=== PATIENT | female | born 1955 | race Caucasian/White ===

== ENCOUNTER 2021-01-30 10:26 | Emergency (ER) | payer OTHER, MEDICARE, MEDICAID ==
[~2021-01-30] VITALS: Ht 167.6 cm; Wt 74.3 kg
--- NOTE | 2021-01-30 12:28 | REP ---
INDICATION: cough. COMPARISON: Comparison chest x-ray February 09, 2015. TECHNIQUE: Portable upright AP chest radiograph. FINDINGS: The lungs are well inflated and clear. Pleural angles are sharp. Heart is not felt to be enlarged. There are clips in right upper quadrant of the abdomen. Pulmonary vasculature is slightly cephalized. The aorta is calcific and tortuous.. IMPRESSION: Mild cephalization of the pulmonary vasculature. Otherwise no acute disease.. <Electronically signed by Angel Moura > 01/30/21 0830
[2021-01-30 13:15] LABS: BASO % 0.8 % (0.0-1.0); EOS # 0.1 10^3/uL (0.0-0.5); EOS % 2.3 % (0.0-3.0); HEMATOCRIT 40.5 % (36.0-47.0); HEMOGLOBIN 13.1 g/dl (12.0-15.5); LYMPH # 1.1 10^3/uL (1.5-5.0); LYMPH % 20.9 % (24.0-44.0); MEAN CORPUSCULAR HGB CONC 32.3 g/dl (32.0-36.5); MEAN CORPUSCULAR VOLUME 92.9 fl (80.0-96.0); MONO # 0.3 10^3/uL (0.0-0.8); MONO % 6.5 % (2.0-8.0); NEUTROPHILS # 3.6 10^3/uL (1.5-8.5); NEUTROPHILS % 69.3 % (36.0-66.0); PLATELET COUNT, AUTOMATED 225 10^3/uL (150-450); RED BLOOD COUNT 4.36 10^6/uL (4.00-5.40); WHITE BLOOD COUNT 5.2 10^3/uL (4.0-10.0)
[2021-01-30 13:51] LABS: BLOOD UREA NITROGEN 13 MG/DL (7-18); CALCIUM LEVEL 9.7 MG/DL (8.8-10.2); CARBON DIOXIDE LEVEL 31 MEQ/L (21-32); CHLORIDE LEVEL 106 MEQ/L (98-107); CK-MB VALUE MASS 2.7 NG/ML (<3.6); CPK CREATINE PHOSPHOKINASE 152 U/L (26-192); CREATININE FOR GFR 0.69 MG/DL (0.55-1.30); GLOMERULAR FILTRATION RATE > 60.0 (>45); GLUCOSE, FASTING 87 MG/DL (70-100); MB/CK RELATIVE INDEX 1.78 (< OR =4); NT-PRO BNP 125 PG/ML (<125); POTASSIUM SERUM 4.2 MEQ/L (3.5-5.1); SODIUM LEVEL 141 MEQ/L (136-145); TROPONIN I < 0.02 NG/ML (< 0.10)
[2021-01-30] MEDS ORDERED: TESS100C PO (14:28)
[2021-01-30 14:37] VITALS: BP 170/76
--- NOTE | 2021-01-30 19:47 | ECGEPIP ---
[facility] - ED Test Date: 2021-01-30 Pat Name: AYESHA ABRAHAM Department: Room: - Gender: Female Magnetic Locater: : 1955 Requested By: JAYLA Santa PA-C Order Number: [id number] Reading MD: Bacilio Preston Measurements Intervals Protem Rate: 75 P: 32 LA: 192 QRS: 19 QRSD: 92 T: 40 QT: 374 QTc: 417 Interpretive Statements Normal sinus rhythm Nonspecific ST T wave changes cw 02/09/[address] T wave changes Electronically Signed on 01-30-2021 19:47:02 EDT by Bacilio Preston
== END 2021-01-30 14:42 | disposition home or self-care (01) ==
LOC: M ED 10:26
DX: J00 Acute nasopharyngitis [common cold] (principal); J06.9 Acute upper respiratory infection, unspecified; B34.8 Other viral infections of unspecified site; B34.1 Enterovirus infection, unspecified; H61.21 Impacted cerumen, right ear; R91.8 Other nonspecific abnormal finding of lung field; Z20.9 Contact with and (suspected) exposure to unspecified communicable disease; I10 Essential (primary) hypertension; E78.5 Hyperlipidemia, unspecified; Z88.0 Allergy status to penicillin

== ENCOUNTER 2021-07-12 22:27 | Emergency (ER) | payer OTHER, MEDICAID ==
[~2021-07-12] VITALS: Ht 167.6 cm; Wt 63.6 kg
[2021-07-12 22:27] VITALS: BP 165/73
[~2021-07-12 22:27] MED LIST: TESS100C PO
== END 2021-07-12 23:38 | disposition left against medical advice (07) ==
LOC: M ED 22:27
DX: Z53.21 Procedure and treatment not carried out due to patient leaving prior to being seen by health care provider (principal)

== ENCOUNTER 2024-09-20 11:33 | Emergency (ER) | payer OTHER, MEDICAID ==
[~2024-09-20] VITALS: Ht 167.6 cm; Wt 72.3 kg
[2024-09-20] MEDS ORDERED: AZIT-12 PO (14:39)
[2024-09-20] MEDS ORDERED: LEVO1TAB40 PO (14:43)
[2024-09-20 14:57] VITALS: BP 130/67; TEMP 97.9; O2SAT 95
[2024-09-20] MEDS ORDERED: PROA1AER2 INH (18:03)
== END 2024-09-20 14:59 | disposition home or self-care (01) ==
LOC: M ED 11:33
DX: J18.9 Pneumonia, unspecified organism (principal); Z88.0 Allergy status to penicillin

== ENCOUNTER 2024-09-25 11:18 | Emergency (ER) | payer OTHER, MEDICAID ==
[~2024-09-25] VITALS: Ht 167.6 cm; Wt 72.7 kg
[~2024-09-25 11:18] MED LIST changes: +AZIT-12 PO; +LEVO1TAB40 PO; +PROA1AER2 INH
[2024-09-25] MEDS ORDERED: ALBU8.5H (11:28)
[2024-09-25] MEDS ORDERED: AZIT-12 (11:28)
[2024-09-25 11:58] LABS: BASO # 0.1 10^3/uL (0.0-0.2); EOS # 0.2 10^3/uL (0.0-0.5); HEMATOCRIT 40.6 % (36.0-47.0); HEMOGLOBIN 13.5 g/dl (12.0-15.5); LYMPH # 2.1 10^3/uL (1.5-5.0); LYMPH % 34.5 % (24.0-44.0); MEAN CORPUSCULAR HEMOGLOBIN 30.2 pg (27.0-33.0); MEAN CORPUSCULAR HGB CONC 33.3 g/dl (32.0-36.5); MEAN CORPUSCULAR VOLUME 90.8 fl (80.0-96.0); MONO # 0.4 10^3/uL (0.0-0.8); MONO % 6.2 % (2.0-8.0); NEUTROPHILS # 3.2 10^3/uL (1.5-8.5); PLATELET COUNT, AUTOMATED 286 10^3/uL (150-450); RED BLOOD COUNT 4.47 10^6/uL (4.00-5.40)
[2024-09-25 12:23] LABS: ALBUMIN 3.4 G/DL (3.2-5.2); ALKALINE PHOSPHATASE 71 U/L (35-104); ALT/SGPT 16 U/L (7.0-40); AST/SGOT 16 U/L (<34); BILIRUBIN,DIRECT 0.2 MG/DL (<0.4); BLOOD UREA NITROGEN 19 MG/DL (9-23); CALCIUM LEVEL 9.2 MG/DL (8.3-10.6); CARBON DIOXIDE LEVEL 27 MMOL/L (20-31); CHLORIDE LEVEL 107 MMOL/L (98-107); CREATININE FOR GFR 0.75 MG/DL (0.55-1.30); GLOMERULAR FILTRATION RATE > 60.0 (>39); GLUCOSE, FASTING 80 MG/DL (74-106); SODIUM LEVEL 141 MMOL/L (136-145); TOTAL PROTEIN 6.3 G/DL (5.7-8.2)
[2024-09-25] MEDS: methylPREDNISolone 125MG 2ML VIAL IV ONE (17:47)
[2024-09-25] MEDS: IPRATROPIUM 0.5MG/ALBUTEROL 2.5MG INH SOL UD 3ML (DUONEB) NEB PRN (17:52)
[2024-09-25 18:01] VITALS: BP 147/75
[2024-09-25 18:30] VITALS: TEMP 98.5; O2SAT 95
[2024-09-25] MEDS ORDERED: NEBU1EAC80 MC (18:32)
[2024-09-25] MEDS ORDERED: ALBU2.5V10 NEB (18:33)
[2024-09-25] MEDS ORDERED: PRED20TA PO (18:33)
== END 2024-09-25 18:45 | disposition home or self-care (01) ==
LOC: M ED 11:18
DX: J18.9 Pneumonia, unspecified organism (principal); I10 Essential (primary) hypertension; E78.5 Hyperlipidemia, unspecified; Z88.0 Allergy status to penicillin
CPT/HCPCS: 71045; 80048; 80076; 85025; 87486; 87581; 87633; 87798; 93005; 93041; 94640; 94760; 96374; 99285; J2919

== ENCOUNTER → 2025-09-20 | Outpatient (CLI) | payer MEDICARE, MEDICAID ==
[~2025-09-20] MED LIST changes: +ALBU2.5V10 NEB; +ALBU8.5H; +AZIT-12; +NEBU1EAC80 MC; +PRED20TA PO
== END ==
LOC: M RAD 15:45
PROVIDERS: ATTEND Physician Assistant Medical
DX: M25.511 Pain in right shoulder (principal)